=== PATIENT | male | born 1970 | race Caucasian/White ===

== ENCOUNTER 2018-07-07 11:54 | Emergency (ER) | payer OTHER ==
--- NOTE | 2018-07-07 12:22 | ERPHSYRPT ---
- History of Present Illness Time Seen by Provider: 07/07/18 12:10 Source: patient Exam Limitations: no limitations Patient Subjective Stated Complaint: pt states he thinks hes incision is infected, broke ankle 05/26. had surgery, he states there is drainage, surgery done in [facility] Triage Nursing Assessment: pt has cam boot on, pt has incision to outer aspect of ankle that has scab with no drainage at present time, foot warm, slight swelling around incison, Physician History: Pt underwent right ankle ORIF on 2018 in [place]. He noticed swelling and redness in the lateral ankle wound area 2 days ago. He denies any new injury, no fever, chills, cough, chest pain, nausea or other complaints, no discharge. He called his surgeon today and was advised to come here. Method of Injury: other (denies) Occurred: days ago (2) Quality: constant Severity of Pain-Max: mild Severity of Pain-Current: mild Lower Extremities Pain: ankle: right (wound redness, and pain) Modifying Factors: Improves With: nothing Associated Symptoms: none Allergies/Adverse Reactions: tetracycline Allergy (Verified 07/07/18 12:04) Hx Tetanus, Diphtheria Vaccination/Date Given: Yes Hx Influenza Vaccination/Date Given: Yes Hx Pneumococcal Vaccination/Date Given: No Immunizations Up to Date: No - Review of Systems Constitutional: No Symptoms Ears, Nose, & Throat: No Symptoms Respiratory: No Symptoms Abdominal/Gastrointestinal: No Symptoms Skin: Other (right lateral ankle wound redness and pain) All Other Systems: Reviewed and Negative - Past Medical History Pertinent Past Medical History: No Neurological History: No Pertinent History Cardiac History: No Pertinent History Respiratory History: No Pertinent History Endocrine Medical History: No Pertinent History Musculoskeletal History: Fractures, Osteoarthritis Other Medical History: R arm fracture - Past Surgical History Past Surgical History: Yes Musculoskeletal: Orthopedic Surgery Other Surgical History: ankle ,knee, hand, arm, tendon repairs - Social History Smoking Status: Never smoker Exposure to second hand smoke: No Drug Use: none Patient Lives Alone: No - Nursing Vital Signs Nursing Vital Signs: Initial Vital Signs Pulse Rate 95 H 07/07/18 11:58 Respiratory Rate 16 07/07/18 11:58 Blood Pressure 159/104 07/07/18 11:58 O2 Sat by Pulse Oximetry 96 07/07/18 11:58 Pain Scale Pain Intensity 5 - Physical Exam General Appearance: no apparent distress Eyes, Ears, Nose, Throat Exam: normal ENT inspection Neck Exam: normal inspection Cardiovascular/Respiratory Exam: chest non-tender, normal breath sounds, regular rate/rhythm, heart sounds normal Gastrointestinal/Abdominal Exam: non-tender, soft Back Exam: normal inspection Ankle Exam: right ankle: other (lateral ankle surgical wound is healed, there is a small area in the mid-proximal section covered with dry scab, just proximal from this there is a 1.5-2 cm erythematous area, no lesion or discharge , no fluctuating area, nom obvious abscess. Good distal pulses and sensation on the foot.) Neuro/Tendon Exam: normal sensation, normal motor functions Mental Status Exam: alert, oriented x 3, cooperative Skin Exam: normal color, warm, dry, No rash SpO2 Interpretation: normal SpO2: 96 O2 Delivery: Room Air - Course Nursing assessment & vital signs reviewed: Yes - Radiology Exams Ankle X-ray Interpretation: Reviewed by me, Other (ankle fractures with intact internal fixation) Ordered Tests: Active Orders 24 hr Category Date Time Status IV Insertion STAT Care 07/07/18 12:10 Active ANKLE (3 VIEWS) Stat Exams 07/07/18 12:19 Completed BLOOD CULTURE Stat Lab 07/07/18 12:20 Received CBC W DIFF Stat Lab 07/07/18 12:20 Completed CMP Stat Lab 07/07/18 12:20 Completed Erythrocyte Sedimentation Rate Stat Lab 07/07/18 12:20 Completed Lactic Acid Stat Lab 07/07/18 12:10 Completed Lab/Rad Data: Laboratory Result Diagrams 07/07/18 12:20 07/07/18 12:20 Laboratory Results 07/07/18 07/07/18 07/07/18 Range/Units 12:20 12:20 12:20 WBC 7.3 (4.0-10.5) K/mm3 RBC 4.71 (4.1-5.6) M/mm3 Hgb 14.2 (12.5-18.0) gm/dl Hct 42.5 (42-50) % MCV 90.2 (78-100) fl MCH 30.1 (26-32) pg MCHC 33.4 (32-36) g/dl RDW 14.2 H (11.5-14.0) % Plt Count 230 (150-450) K/mm3 MPV 9.9 H (6-9.5) fl Gran % 62.6 (36.0-66.0) % Eos # (Auto) 0.39 (0-0.5) Absolute Lymphs (auto) 1.89 (1.0-4.6) Absolute Monos (auto) 0.44 (0.0-1.3) Lymphocytes % 25.7 (24.0-44.0) % Monocytes % 6.0 (0.0-12.0) % Eosinophils % 5.3 H (0.00-5.0) % Basophils % 0.4 (0.0-0.4) % Absolute Granulocytes 4.59 (1.4-6.9) Basophils # 0.03 (0-0.4) ESR 4 (0-15) mm/hr Sodium 138 (137-145) mmol/L Potassium 4.0 (3.5-5.1) mmol/L Chloride 102 (98-107) mmol/L Carbon Dioxide 26 (22-30) mmol/L Anion Gap 14.3 (5-15) MEQ/L BUN 13 (9-20) mg/dL Creatinine 0.77 (0.66-1.25) mg/dL Estimated GFR > 60.0 ML/MIN Glucose 102 (74-106) mg/dL Lactic Acid (0.4-2.0) Calcium 10.0 (8.4-10.2) mg/dL Total Bilirubin 0.60 (0.2-1.3) mg/dL AST 36 (17-59) U/L ALT 69 H (0-50) U/L Alkaline Phosphatase 95 (38-126) U/L Serum Total Protein 8.2 (6.3-8.2) g/dL Albumin 4.7 (3.5-5.0) g/dL 07/07/18 Range/Units 12:10 WBC (4.0-10.5) K/mm3 RBC (4.1-5.6) M/mm3 Hgb (12.5-18.0) gm/dl Hct (42-50) % MCV (78-100) fl MCH (26-32) pg MCHC (32-36) g/dl RDW (11.5-14.0) % Plt Count (150-450) K/mm3 MPV (6-9.5) fl Gran % (36.0-66.0) % Eos # (Auto) (0-0.5) Absolute Lymphs (auto) (1.0-4.6) Absolute Monos (auto) (0.0-1.3) Lymphocytes % (24.0-44.0) % Monocytes % (0.0-12.0) % Eosinophils % (0.00-5.0) % Basophils % (0.0-0.4) % Absolute Granulocytes (1.4-6.9) Basophils # (0-0.4) ESR (0-15) mm/hr Sodium (137-145) mmol/L Potassium (3.5-5.1) mmol/L Chloride (98-107) mmol/L Carbon Dioxide (22-30) mmol/L Anion Gap (5-15) MEQ/L BUN (9-20) mg/dL Creatinine (0.66-1.25) mg/dL Estimated GFR ML/MIN Glucose (74-106) mg/dL Lactic Acid 1.3 (0.4-2.0) Calcium (8.4-10.2) mg/dL Total Bilirubin (0.2-1.3) mg/dL AST (17-59) U/L ALT (0-50) U/L Alkaline Phosphatase (38-126) U/L Serum Total Protein (6.3-8.2) g/dL Albumin (3.5-5.0) g/dL - Progress Progress: unchanged Progress Note: 07/07/18 14:06 Pt remained comfortable, afebrile, and stable, we reviewed his X ray and lab results, called his surgeon ( Dr Aguila ) at [facility], talked to his PA, Gabo Monzon, discussed our findings and his condition, he agreed to discharge him on PO Keflex, they will arrange a follow up with his surgeon this week. Patient was informed about this, he is being discharged to rest with elevated leg x 2-3 days, and follow up with his surgeon. Counseled pt/family regarding: lab results, diagnosis, need for follow-up, rad results - Departure Departure Disposition: Home Clinical Impression: Cellulitis of right ankle Condition: Stable Critical Care Time: No Referrals: DOCTOR,NO FAMILY [Primary Care Provider] - Instructions: Cellulitis (Skin Infection), Adult (DC), Wound Infection Additional Instructions: Rest with elevated leg x 2-3 days, apply moist heat to area, and follow up with your surgeon in 2-3 days, return if severe pain, swelling, discharge or fever> 101 F! Prescriptions: Cephalexin Mh 500 mg [Keflex 500 mg] 500 mg PO Q6H #40 capsule
[2018-07-07 12:35] LABS: BASOPHIL % 0.4 % (0.0-0.4); Basophil (Absolute #) 0.03 (0-0.4); Eosinophil % 5.3 % (0.00-5.0); Eosinophil (Absolute #) 0.39 (0-0.5); Granulocyte Absolute (ANC) 4.59 (1.4-6.9); Granulocytes % 62.6 % (36.0-66.0); Hematocrit 42.5 % (42-50); Hemoglobin 14.2 gm/dl (12.5-18.0); Lymphocyte (Absolute #) 1.89 (1.0-4.6); Lymphocytes % 25.7 % (24.0-44.0); Mean Cell Volume 90.2 fl (78-100); Mean Corpuscular Hemoglobin 30.1 pg (26-32); Mean Corpuscular Hgb Concent. 33.4 g/dl (32-36); Mean Platelet Volume 9.9 fl (6-9.5); Monocyte (Absolute #) 0.44 (0.0-1.3); Platelet Count 230 K/mm3 (150-450); Red Blood Count 4.71 M/mm3 (4.1-5.6); Red Cell Distribution Width 14.2 % (11.5-14.0); White Blood Count 7.3 K/mm3 (4.0-10.5)
--- NOTE | 2018-07-07 12:36 | XRAY ---
Indication: Postop pain. Comparison: None 3 views of the right ankle anatomic with nondisplaced lateral malleolus fracture with intact fixation hardware and soft tissue swelling. Query nondisplaced posterior malleolus fracture. No obvious callus/bridging. Incidental small plantar heel spur.
[2018-07-07 12:45] LABS: ALBUMIN 4.7 g/dL (3.5-5.0); ALKALINE PHOSPHATASE 95 U/L (38-126); ANION GAP 14.3 MEQ/L (5-15); BLOOD UREA NITROGEN 13 mg/dL (9-20); CHLORIDE 102 mmol/L (98-107); Carbon Dioxide 26 mmol/L (22-30); Creatinine 1 0.77 mg/dL (0.66-1.25); Glucose 102 mg/dL (74-106); SGOT/AST 36 U/L (17-59); SGPT/ALT 69 U/L (0-50); SODIUM 138 mmol/L (137-145); Total Protein 8.2 g/dL (6.3-8.2)
[2018-07-07 13:43] VITALS: BP 139/89; PULSE 69
[2018-07-07 14:10] VITALS: O2SAT 96
== END 2018-07-07 14:21 | disposition home or self-care (01) ==
LOC: ED 11:54
DX: M19.90 Unspecified osteoarthritis, unspecified site (principal)
CPT/HCPCS: 36415; 73610; 80053; 83605; 85025; 85652; 86140; 87040; 99284